=== PATIENT | male | born 1990 | race African-American/Black ===

== ENCOUNTER 2020-12-23 14:11 | Emergency (ER) | payer SELFPAY ==
[~2020-12-23] VITALS: Ht 185.4 cm; Wt 100.0 kg
[2020-12-23 15:42] VITALS: BP 151/96
== END 2020-12-23 15:50 | disposition home or self-care (01) | DRG 951 ==
LOC: ED 14:11
DX: Z20.822 Contact with and (suspected) exposure to COVID-19 (principal)